=== PATIENT | male | born 1990 | race Two or more races ===

== ENCOUNTER 2018-08-09 00:39 | Emergency (ER) | payer OTHER ==
[~2018-08-09] VITALS: Ht 170.2 cm; Wt 98.0 kg
[2018-08-09 00:54] VITALS: BP 132/78
[2018-08-09] MEDS ORDERED: IBUPROFEN 600 MG TABLET. PO ONE (01:10)
[2018-08-09] MEDS ORDERED: ORPHENADRINE CITRATE 60 MG/2 ML VIAL. ONE (01:11)
[2018-08-09] MEDS ORDERED: ACETAMINOPHEN 325 MG TABLET PO ONE ×2 (01:22→01:30)
[2018-08-09] MEDS ORDERED: traMADol 50 MG TABLET ONE (01:22)
[2018-08-09] MEDS ORDERED: ORPH-16 PO (01:23)
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
[2018-08-09] MEDS ORDERED: traMADol 50 MG TABLET PO ONE (01:30)
== END 2018-08-09 01:29 | disposition home or self-care (01) ==
LOC: ER 00:39
DX: S16.1XXA Strain of muscle, fascia and tendon at neck level, initial encounter (principal); R51 Headache; F41.9 Anxiety disorder, unspecified; F17.210 Nicotine dependence, cigarettes, uncomplicated; V87.7XXA Person injured in collision between other specified motor vehicles (traffic), initial encounter; Y93.I9 Activity, other involving external motion; Y92.488 Other paved roadways as the place of occurrence of the external cause; Y99.8 Other external cause status
CPT/HCPCS: 99283